=== PATIENT | male | born 1990 | race African-American/Black ===

== ENCOUNTER 2018-06-04 20:10 | Emergency (ER) | payer OTHER, SELFPAY ==
[2018-06-04 21:00] VITALS: BP 151/90; PULSE 80; RESP 18; TEMP 36.5; O2SAT 97; BMI 32.5
--- NOTE | 2018-06-04 22:24 | DI.US.S_ITS ---
PROCEDURE: US SCROTUM INDICATIONS: L testicle pain TECHNIQUE: Real-time scanning was performed of the scrotum and testicles, with image documentation. Color and pulse Doppler interrogation was performed of both testicles. COMPARISON: None. FINDINGS: Right: Testicle is normal in size at 4.7 x 2.0 x 2.5 cm, and homogenous in echotexture. Epididymis is normal in overall size and morphology. No hydrocele. Small varicocele. Overlying scrotal skin is normal in thickness. Left: Testicle is normal in size at 4.5 x 2.2 x 2.6 cm, and homogeneous in echotexture. Epididymis is normal in overall size and morphology. No hydrocele. Small varicocele. Overlying scrotal skin is normal in thickness. Doppler: Color and pulse Doppler demonstrate normal and symmetric arterial flow in both testicles. IMPRESSION: 1. Normal testicles bilaterally. 2. Small varicoceles, left greater than right. Note: These findings are concordant with the preliminary interpretation. Dictated by: George BAZAN Interpreted: Neil Salazar MD on 06/05/2018 at 7:44 Approved by: Neil Salazar M.D. on 06/05/2018 at 14:50
[2018-06-04 22:59] VITALS: BP 140/86; PULSE 86; RESP 16; TEMP 36.7; O2SAT 100
--- NOTE | 2018-06-04 23:09 | ED.MALEGU ---
HPI - Male Genitourinary General Chief complaint: Urogenital-Male Stated complaint: SHARP LOWER ABD & GROIN PAIN Time Seen by Provider: 06/04/18 21:24 Source: patient Mode of arrival: ambulatory Limitations: no limitations History of Present Illness HPI Narrative: 28-year-old otherwise healthy male presents with a few days of L testicle pain in the abscence of injury. No dysuria, frequency, or urgency. No discharge. Monogomous relationship. Seen by PCP, treated for epididymitis with Levaquin. Complaint: testicle pain Onset (ago): day(s) Duration: constant Location: left testicle Relieving factors: none Exacerbating factors: none Review of Systems Review of Systems All systems reviewed & are unremarkable except as noted in HPI and below Constitutional Denies chills, Denies fever(s), Denies lethargy and Denies weakness Eyes Denies change in vision, Denies eye discharge, Denies irritation and Denies loss of vision ENT Ears, Nose, Mouth, and Throat: Denies change in voice, Denies neck pain and Denies sore throat Cardiovascular Denies chest pain, Denies irregular heart rhythm, Denies lightheadedness, Denies palpitations, Denies dyspnea, Denies dyspnea on exertion and Denies orthopnea Respiratory Denies cough, Denies dyspnea, Denies dyspnea on exertion and Denies wheezing Gastrointestinal Gastrointestinal: Denies abdominal pain, Denies change in bowel habits, Denies diarrhea, Denies nausea and Denies vomiting Genitourinary Denies hematuria, Denies flank pain, Reports testicular pain, Denies urinary incontinence and Denies urinary urgency Musculoskeletal Denies neck pain Integumentary/Breasts Denies pruritus, Denies erythema, Denies rash and Denies wounds Neurologic Denies confusion, Denies loss of vision and Denies weakness Psychiatric Denies anxiety, Denies confusion, Denies depression, Denies homicidal ideation and Denies suicidal ideation Endocrine Denies palpitations Hematologic/Lymphatic Denies easy bruising Allergic/Immunologic Denies wheezing [facility] Social History Smoking Status: Never smoker Exam Narrative Exam Narrative: GEN: AOx3 and in mild distress EYES: Pupils are equal, round, and reactive to light and accommodation. Extraoccular muscles are intact bilaterally. There is no subconjunctival hemorrhage or exudate. CHEST: Lungs are clear to auscultation bilaterally and free of wheezes, rales, or rhonchi. Heart rate is regular rhythm, there are no murmurs, clicks, rubs, or gallops. There is no chest wall tenderness. ABD: Abdomen is soft and nontender. There is no guarding or rebound. Bowel sounds are normal in all 4 quadrants. There is no mass or organomegaly. : examined while standing, no evidence of hernia. Pain on superior pole of L testicle. NO swelling, or discoloration. EXT: Full painless ROM of all extremities with no loss of sensation or strength. SKIN: Warm, pink, and dry. No erythema or rash Initial Vital Signs Initial Vital Signs: Vital Signs Temperature 97.7 F 06/04/18 21:00 Pulse Rate 80 06/04/18 21:00 Respiratory Rate 18 06/04/18 21:00 Blood Pressure 151/90 H 06/04/18 21:00 Pulse Oximetry 97 06/04/18 21:00 Course Orders Ordered: ED Orders 06/04/18 22:24 US scrotum Stat 06/04/18 22:30 Urine Chlamydia Gonorrhea PCR Stat Vital Signs - 8 hr 06/04/18 21:00 06/04/18 22:59 Temperature 97.7 F 98.0 F Pulse Rate 80 86 Respiratory Rate 18 16 Blood Pressure 151/90 H Blood Pressure [Right Arm] 140/86 Pulse Oximetry 97 100 MDM - Male Genitourinary Medical Records Attestation: I reviewed the patient's medical records. Lab Data Attestation: I reviewed the patient's lab results. Lab Results 06/04/18 Range/Units 22:30 Ur Chlamydia DNA (PCR) Not detected N gonorrhoeae DNA (PCR) Not detected Urine Dip Bedside Urine Glucose Negative Bedside Urine Bilirubin - Negative Bedside Urine Ketone - Negative Urine Specific [place] 1.025 Bedside Urine Occult Blood - Negative Bedside Urine pH 6.0 Bedside Urine Protein - Negative Bedside Urine Urobilinogen - Negative Bedside Urine Nitrite - Negative Bedside Urine Leukocytes - Negative Esterase Imaging Data Testicular US: Attestation: I personally reviewed and interpreted this imaging study as follows: Radiologist's impression: No torsion. B/L hydroceles Discharge Plan Departure Patient Disposition: Home Clinical Impression: Bilateral varicoceles Discharge Date/Time: 06/05/18 00:00 Interventions: ED Discharge Assessment Last Done: 06/05/18 00:04 Instructions: DI for Varicocele Activity Restrictions/Additional Instructions: *You have been diagnosed with [bilateral varicoceles ] *What to do: *Take medications as directed *Follow up with your primary care provider in 2-3 days, call for an appointment. Let them know you were seen in the Emergency Department and that we ask that you be seen in follow up *Return to ER if you should have any new, worsening or concerning symptoms Referrals: Gelacio Mojica MD [Non-Staff] -
[2018-06-05 00:19] LABS: Urine N gonorrhoeae NOT DETECTED
[2018-06-05 00:38] LABS: Urine Chlamydia NOT DETECTED
== END 2018-06-05 | disposition home or self-care (01) ==
PROVIDERS: Emergency Provider Emergency Medicine; Family Provider General Practice; PCP General Practice
DX: I86.1 Scrotal varices (principal)
CPT/HCPCS: 76870; 81003; 87491; 87591; 99282; 99284